=== PATIENT | male | born 1975 | race Caucasian/White ===

== ENCOUNTER → 2017-01-05 | Outpatient (CLI) | payer OTHER ==
[2017-01-05 08:49] LABS: BLOOD, URINE NEG (NEG); GLUCOSE,URINE NEG (NEG); KETONE, URINE NEG (NEG); MUCUS URINE FEW /lpf (OCC); NITRITE,URINE NEG (NEG); URINE COLOR YELLOW (YELLW/STRAW)
[2017-01-05 09:08] LABS: ANION GAP 9 MEQ/L (5-15); AST (GOT) 43 U/L (15-37); BICARBONATE 28.5 MEQ/L (21.0-32.0); BLOOD UREA NITROGEN 18 MG/DL (7-18); CHLORIDE 101 MEQ/L (98-107); GLOMERULAR FILTRATION RATE 94 ML/MIN (>89); GLUCOSE,FASTING 71 MG/DL (74-99); POTASSIUM 4.1 MEQ/L (3.5-5.1); SODIUM (NA) 138 MEQ/L (136-145)
[2017-01-05 09:24] LABS: ALKALINE PHOSPHATASE 107 U/L (45-117); ALT (GPT) 64 U/L (12-78); FOLLICLE STIMULATING HORMONE 2.3 mIU/mL (0.7-10.8); FREE T3 2.97 PG/ML (2.18-3.98); FREE T4 0.96 NG/DL (0.76-1.46); HDL CHOLESTEROL 58.6 MG/DL (40.0-60.0); LDL CHOLESTEROL 130 MG/DL (0-99); LUTEINIZING HORMONE 4.7 mIU/mL (1.2-10.6); TOTAL BILIRUBIN ADULT 0.8 MG/DL (0.2-1.0)
[2017-01-05 10:30] LABS: MICRO ALBUMIN RANDOM URINE RAW 8.8 MG/L (0.0-30.0)
[2017-01-12 08:59] LABS: HEMATOCRIT 45.1 % (39.0-51.0); MEAN CELL VOLUME 83.5 FL (80.0-100.0); MEAN CORPUSCULAR HEMOGLOBIN 28.2 PG (27.0-34.0); MEAN CORPUSCULAR HGB CONC 33.8 % (32.0-36.0); PLATELET COUNT 226 TH/MM3 (150-450); RED CELL DISTRIBUTION WIDTH 12.3 % (11.6-17.2); REVIEW FLAG FINAL; WHITE BLOOD COUNT 6.9 TH/MM3 (4.0-11.0)
== END ==
LOC: CLAB 08:01
DX: N52.9 Male erectile dysfunction, unspecified (principal); N41.9 Inflammatory disease of prostate, unspecified; R25.2 Cramp and spasm; R53.83 Other fatigue
CPT/HCPCS: 36415; 80053; 80061; 81001; 82043; 83001; 83002; 83735; 84153; 84402; 84403; 84439; 84443; 84481